=== PATIENT | male | born 1965 | race Caucasian/White ===

== ENCOUNTER → 2018-11-03 19:09 | Outpatient (CLI) | payer OTHER, SELFPAY ==
--- NOTE | 2018-11-03 | DI.MRI.S_ITS ---
PROCEDURE: MR KNEE LT WO CON INDICATIONS: left knee pain TECHNIQUE: Noncontrast sagittal PD fast spin echo and T2 fast spin echo with fat saturation, sagittal 3-D FLASH with fat saturation; coronal T1 spin echo and PD fast spin echo with fat saturation, and axial PD fast spin echo with fat saturation through the knee. COMPARISON: [facility], CR, XR KNEE 4+ VIEWS LEFT, 05/20/2018, 13:29. FINDINGS: Image quality: Excellent. Menisci: Lateral meniscus intact. Medial meniscal tear involving the body, with abnormal signal extending to the undersurface, and partial extrusion. Cruciate ligaments: The anterior and posterior cruciate ligaments appear intact. Medial structures: The medial collateral ligament appears intact. The posterior oblique ligament, semimembranosus tendon insertions, oblique popliteal ligament, and meniscocapsular junction appear intact. Visualized portions of the pes anserinus tendons appear normal. No abnormal bursal fluid. Lateral structures: The lateral collateral ligament, long and short heads of the biceps femoris tendon appear intact. The popliteus tendon appears normal; the popliteofibular ligament appears intact. The posterosuperior and anteroinferior popliteomeniscal fascicles appear intact. The arcuate and fabellofibular ligaments appear intact, on either side of the lateral inferior geniculate artery. Iliotibial band appears normal. Anterior structures: Prepatellar and superficial infrapatellar subcutaneous edema/fluid. Mild thickening of the lateral patellofemoral ligament raising possibility of sprain. No complete rupture. The quadriceps and patellar tendons appear intact. Patellar alignment is normal. No femoral trochlear dysplasia or ventral trochlear prominence. No edema in the infrapatellar fat pad. Bones and cartilage: No focal marrow contusion or discrete low signal fracture line. Within the medial compartment, diffuse near full-thickness loss of the femoral and tibial articular cartilage. Within the lateral compartment, diffuse partial thickness loss of the femoral and tibial articular cartilage without focal defect Within the patellofemoral compartment, partial-thickness loss of articular cartilage overlying the median patellar ridge. There is also diffuse femoral trochlear articular cartilage partial-thickness loss Joint space: No pathologic joint effusion. No Phillips's cyst. No evidence of intra-articular loose body. IMPRESSION: Medial meniscal undersurface tear involving the body with partial extrusion. 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 Thickening of the lateral patellofemoral ligament suggestive of age indeterminate sprain. Prepatellar and superficial infrapatellar subcutaneous edema/fluid. Dictated by: Oh Gross M.D. on 11/04/2018 at 10:00 Approved by: Oh Gross M.D. on 11/04/2018 at 11:39
== END ==
PROVIDERS: Visit Provider Nurse Practitioner
DX: M25.562 Pain in left knee (principal); S83.242A Other tear of medial meniscus, current injury, left knee, initial encounter; M17.12 Unilateral primary osteoarthritis, left knee; R60.0 Localized edema
CPT/HCPCS: 73721